=== PATIENT | female | born 1990 | race American Indian/Alaskan Native ===

== ENCOUNTER 2018-03-03 19:50 | Outpatient (CLI) | payer MEDICAID ==
[2018-03-03 21:45] VITALS: BP 114/62
[2018-03-03 22:59] LABS: Bilirubin,Urine NEG (Negative); Blood,Urine NEG (Negative); Color,Urine Yellow (Yellow); Mucus,Urine FEW /HPF; Protein,Urine <15 mg/dL mg/dL (Negative); Urobilinogen,Urine < 2.0 mg/dL (<2.0)
[2018-03-03] MEDS ORDERED: NORCO 5/325 PO ONE (23:15)
== END 2018-03-03 23:36 | disposition home or self-care (01) ==
LOC: TRG 19:50 → ED 19:50 → EDSTATUS 21:06 → TRG 21:33
PROVIDERS: ATTEND Obstetrics & Gynecology
DX: O47.02 False labor before 37 completed weeks of gestation, second trimester (principal); Z3A.20 20 weeks gestation of pregnancy
CPT/HCPCS: 59025; 81001